=== PATIENT | male | born 1990 | race African-American/Black ===

== ENCOUNTER 2019-12-28 11:24 | Emergency (ER) | payer OTHER ==
[~2019-12-28] VITALS: Ht 180.3 cm; Wt 149.7 kg
[2019-12-28 12:40] LABS: ABSOLUTE LYMPHOCYTES 2.6 thou/uL (0.8-5.3); ABSOLUTE MONOCYTES 0.6 thou/uL (0.0-1.2); ABSOLUTE NEUTROPHILS 2.2 thou/uL (1.6-8.1); BASOPHILS 0.6 %; EOSINOPHILS 0.1 %; HEMATOCRIT 46.1 % (42.0-52.0); HEMOGLOBIN 15.7 gm/dL (14.0-18.0); LYMPHOCYTES 48.1 %; MCH 28.1 pg (26.0-34.0); MCV 82.7 fL (80.0-100.0); MONOCYTES 10.4 %; MPV 6.5 fl. (7.2-11.1); NUCLEATED RBCS 0 /100WBC; PLATELET COUNT* 265 thou/uL (150-400); POLYS 40.8 %; RBC 5.57 mil/uL (4.50-6.00); RDW-CV 14.1 % (10.5-14.5); WBC 5.4 thou/uL (4.0-11.0)
[2019-12-28 12:49] LABS: CALCIUM 9.1 mg/dL (8.5-10.1); CREATININE 1.1 mg/dL (0.6-1.3); POTASSIUM 4.1 mmol/L (3.5-5.1)
[2019-12-28 12:58] LABS: ALBUMIN 3.7 g/dL (3.4-5.0); TOTAL BILIRUBIN 0.3 mg/dL (<0.1-1.0)
[2019-12-28] MEDS ORDERED: ZPAK PO (13:19)
[2019-12-28] MEDS ORDERED: VENTOLIN HFA 1818 GM INH ×2 (13:19→13:25)
[2019-12-28] MEDS ORDERED: ONDANSETRON HCL4 M2 PO (13:20)
[2019-12-28] MEDS ORDERED: DOXYCYCLINE 10100 MG PO (13:25)
[2019-12-28 13:48] VITALS: BP 150/85
== END 2019-12-28 13:48 | disposition home or self-care (01) ==
LOC: M.ERS 11:24
PROVIDERS: Family Medicine
DX: J18.9 Pneumonia, unspecified organism (principal); Z88.1 Allergy status to other antibiotic agents